=== PATIENT | female | born 1970 ===

== ENCOUNTER 2018-10-26 12:27 | Emergency (ER) | payer OTHER ==
[~2018-10-26] VITALS: Ht 149.9 cm; Wt 64.4 kg
[2018-10-26 13:01] VITALS: Ht 149.9 cm; Wt 64.4 kg
[2018-10-26 13:33] LABS: CALCIUM 9.2 mg/dL (8.5-10.1); CARBON DIOXIDE 24.5 mmol/L (21-32); CHLORIDE SERUM 103 mmol/L (98-107); CREATININE SERUM 0.8 mg/dL (0.6-1.0); GFR1 > 60 mL/min; GLUCOSE SERUM 104 mg/dL (74-106); POTASSIUM SERUM 3.9 mmol/L (3.5-5.1); SODIUM SERUM 136 mmol/L (136-145)
[2018-10-26 13:37] LABS: ALBUMIN 3.8 g/dL (3.4-5.0); ALKALINE PHOSPHATASE 104 U/L (46-116); ALT/SGPT 17 U/L (14-59); AST/SGOT 20 U/L (15-37); BILIRUBIN TOTAL 0.1 mg/dL (0.20-1.00); LIPASE 154 IU/L (73-393)
[2018-10-26 13:38] LABS: TOTAL PROTEIN, SERUM 8.4 g/dL (6.4-8.2)
[2018-10-26 13:43] LABS: microscopic required? YES; urine erythrocyte 3+ (NEGATIVE)
[2018-10-26 13:47] LABS: BASOPHIL % 0.3 % (0-2); PLATELET COUNT 359 x10^3mcL (130-400); RED CELL DISTRIBUTION WIDTH 13.8 % (11.5-14.5)
[2018-10-26 15:13] VITALS: BP 130/78
== END 2018-10-26 15:14 | disposition home or self-care (01) ==
LOC: ED 12:27
PROVIDERS: Emergency Medicine
DX: J40 Bronchitis, not specified as acute or chronic (principal); K21.9 Gastro-esophageal reflux disease without esophagitis; M19.90 Unspecified osteoarthritis, unspecified site
CPT/HCPCS: J1885; J7613; J7644; Q0092